=== PATIENT | female | born 1930 | race Caucasian/White ===

== ENCOUNTER 2016-09-12 10:52 | Inpatient (IN) | payer OTHER, MEDICARE ==
[~2016-09-12] VITALS: Ht 165.1 cm; Wt 71.7 kg
[2016-09-12 10:59] VITALS: BP 133/54; PULSE 79; RESP 16; TEMP 97.5; O2SAT 100
--- NOTE | 2016-09-12 11:00 | NUR ---
Patient placed in room 5, here for low H/H notified by PMD this morning.
--- NOTE | 2016-09-12 11:10 | NUR ---
Dr Ospina at bedside examining patient
--- NOTE | 2016-09-12 11:10 | NUR ---
Pt brought by self, A&Ox4,pt c/o generalized weakness and SOB, also memo legs bruising, skin pink and warm,cap refill<3, VSS, pt follows commands, pt placed on O2 3L NC.
[2016-09-12] MEDS ORDERED: NACL 0.9% 1,000 ML IV SCH (11:24)
--- NOTE | 2016-09-12 12:00 | NUR ---
Medication reconciliation completed with information provided by patient . Any prior medication reconciliation on file was reviewed and corrected.
[2016-09-12 12:02] LABS: BASOPHILS % (AUTO) 0.7 % (0.0-2.0); EOSINOPHILS # (AUTO) 0.1 K/uL (0.0-0.4); EOSINOPHILS % (AUTO) 1.1 % (0.0-4.0); LYMPHOCYTES # (AUTO) 0.8 K/uL (1.0-5.5); MEAN CORPUSCULAR HEMOGLOBIN 32 pg (27-31); MEAN CORPUSCULAR HGB CONC 34 % (32-36); MEAN CORPUSCULAR VOLUME 95 fL (79.0-98.0); MONOCYTES # (AUTO) 0.6 K/uL (0.0-1.0); MONOCYTES % (AUTO) 11.6 % (1.7-9.3); NEUTROPHILS # (AUTO) 3.6 K/uL (1.8-7.7); NEUTROPHILS % (AUTO) 71.6 % (40.0-70.0); PLATELET COUNT (AUTO) 224 K/uL (130-430); RED CELL DISTRIBUTION WIDTH 20.1 % (9.0-15.0); WHITE BLOOD COUNT (AUTO) 5.1 K/uL (4.8-10.8)
[2016-09-12 12:05] LABS: ANION GAP 10 (5-15); CALCIUM 8.5 mg/dL (8.4-11.0); CHLORIDE 104 mmol/L (98-107); CREATININE 0.93 mg/dL (0.55-1.30); GLUCOSE 101 mg/dL (70-99); POTASSIUM 3.7 mmol/L (3.5-5.1); SODIUM SERUM 138 mmol/L (136-145); UREA NITROGEN, BLOOD 25 mg/dL (8-21)
[2016-09-12 12:11] LABS: RED BLOOD CELL COUNT(AUTO) 1.71 MIL/uL (4.2-6.2)
[2016-09-12 12:14] LABS: HEMATOCRIT 16.2 % (36-48); HEMOGLOBIN 5.4 g/dL (12.0-16.0)
[2016-09-12] MEDS ORDERED: NACL 0.9% 1,000 ML IV ONE (12:15)
[2016-09-12 12:20] LABS: ALANINE AMINOTRANSFERASE 15 U/L (12-78); ALBUMIN 2.6 g/dL (3.4-4.8); ASPARTATE AMINOTRANSFERASE 17 U/L (10-37); TOTAL BILIRUBIN 0.6 mg/dL (0.0-1.0); TOTAL PROTEIN, SERUM 5.7 g/dL (6.4-8.3)
[2016-09-12 12:41] LABS: INR > 9.0 (0.8-1.2); PROTHROMBIN TIME > 90.0 SECS (9.5-12.5)
[2016-09-12] MEDS ORDERED: cefTRIAXone 1 GM IVPB PREMIX 50 ML IV ONE (12:45)
[2016-09-12 12:57] LABS: HEMOGLOBIN 5.2 g/dL (12.0-16.0)
[2016-09-12 12:58] LABS: HEMATOCRIT 15.1 % (36-48)
[2016-09-12] MEDS ORDERED: ALBUTEROL SULFATE 0.083% 2.5 MG/3 ML VIAL.NEB INH PRN (13:00)
[2016-09-12] MEDS ORDERED: IPRATROPIUM BROM 0.5 MG/2.5 ML VIAL.NEB (ATROVENT) INH PRN (13:00)
[2016-09-12 13:06] LABS: IRON (SERUM) 56 mcg/dL (37-145); TOTAL IRON BIND. CAPACITY 325 ug/dL (250-450)
[2016-09-12] MEDS: D5NS 1,000 ML IV SCH ×2 (13:15→23:15)
[2016-09-12] MEDS ORDERED: PANTOPRAZOLE SODIUM 40 MG/VIAL (PROTONIX) IVP ONE (13:30)
[2016-09-12] MEDS ORDERED: POTA20TA83 (13:32)
[2016-09-12] MEDS ORDERED: PANT40TA4 PO (13:32)
[2016-09-12] MEDS ORDERED: FURO-149 PO (13:32)
[2016-09-12] MEDS ORDERED: DONE10TA4 PO (13:32)
[2016-09-12] MEDS ORDERED: PREG100C (13:32)
[2016-09-12] MEDS ORDERED: WARF2.5T82 (13:32)
[2016-09-12] MEDS ORDERED: LEVOTHYROXINE PO (13:32)
[2016-09-12] MEDS ORDERED: ESCI20TA37 PO (13:32)
[2016-09-12] MEDS ORDERED: SIMV40TA5 (13:32)
[2016-09-12] MEDS ORDERED: ferrous sulfate (13:32)
[2016-09-12] MEDS ORDERED: LORA0.5T PO (13:32)
[2016-09-12] MEDS ORDERED: HYDR-4100 (13:32)
[2016-09-12] MEDS ORDERED: ASPI-524 PO (13:32)
[2016-09-12] MEDS ORDERED: ASCO-339 (13:32)
--- NOTE | 2016-09-12 13:37 | NUR ---
CALLED GI CONSULT TO DR KRAUSE RE; GI BLEED. SPOKE TO ELEAZAR
[2016-09-12 13:44] VITALS: BP 133/54; PULSE 79
--- NOTE | 2016-09-12 13:45 | NUR ---
Patient will be admitted to care of Dr White . Admitted to Tele unit. Will go to room 114A . Belongings list completed. Summary report printed.
--- NOTE | 2016-09-12 13:50 | NUR ---
ADMIT NOTE Received pt from ER to the floor with a diagnosis of ANEMIA, SEPSIS. Admission process initiated. patient oriented to pain management, safety and call light-teach back done.
--- NOTE | 2016-09-12 14:00 | NUR ---
assessment notes rec patient with her daughter in thr room with low hgb. pt awakelaert looks pale. hob elevated with ivf infusing well on the r ac. no infiltration noted. noted with brusing on the r thigh, legs and knee. no bleeding noted so far. pt with o2 at 2 liters via nasal cannula. resp easy and unlabored. bed in low position and side rails up and locked. call light provided and knows when to call for assistance. daughter at bedside with patient.
[2016-09-12 14:01] VITALS: BP 133/54; PULSE 79; RESP 18; TEMP 97.5; O2SAT 100
--- NOTE | 2016-09-12 14:20 | NUR ---
rounds 1 unit of ffp started to infuse on the r ac. checked/verified at bedside with sal hollidayn nurse. instructed patient to watch out for any untoward reaction. no sob noted.
--- NOTE | 2016-09-12 14:38 | NUR ---
GI CONSULT Spoke with exchange regarding request for consultation with Dr. Lai ([phone]) for reason: GI bleeding.
--- NOTE | 2016-09-12 14:59 | NUR ---
PULMONARY CONSULT Spoke with Nick regarding request for consultation with Dr. Phillips ([phone]) for reason: COPD.
[2016-09-12] MEDS: ALBUTEROL SULFATE 0.083% 2.5 MG/3 ML VIAL.NEB INH SCH ×2 (15:07→19:00)
[2016-09-12] MEDS: IPRATROPIUM BROM 0.5 MG/2.5 ML VIAL.NEB (ATROVENT) INH SCH ×2 (15:07→19:00)
--- NOTE | 2016-09-12 15:10 | NUR ---
rounds ffp completed and no untoward reaction noted.
--- NOTE | 2016-09-12 15:26 | NUR ---
rounds first unit of prbc started verified with demarcus rn at bedside.instructed patient to watch out for any blood transfusion reaction like chest pain, itching, sob, back pain, fever etc and report to the nurse and understood.
--- NOTE | 2016-09-12 16:03 | NUR ---
rounds blood transfuion in progress no untoward reaction noted, resp easy /unlabored . no sob noted.
--- NOTE | 2016-09-12 18:12 | NUR ---
paged for Dr Lai, dialed . s/w Piper.
--- NOTE | 2016-09-12 18:30 | NUR ---
CLOSING NOTES FIRST UNIT OF BLOOD COMPLETED. NO UNTOWARD REACTION NOTED. NORMAL SALINE INFUSING AFTER. NO ACUTE DISTRESS NOTED. WILL ENDORSED TO NIGHT NURSE SAMI FOR 2 MORE UNITS OF PRBC AND 2 PLATELET PHRESIS.
--- NOTE | 2016-09-12 20:15 | NUR ---
PRBC infusing second unit , no s/sx of adverse reaction / .
[2016-09-12 20:26] VITALS: BP 98/63; PULSE 79; RESP 20; TEMP 97.8; O2SAT 94
[2016-09-12] MEDS: PANTOPRAZOLE SODIUM 40 MG/VIAL (PROTONIX) IVP SCH (23:05)
--- NOTE | 2016-09-12 23:21 | NUR ---
DR COE here to see patient new orders obtained / .
--- NOTE | 2016-09-12 23:23 | NUR ---
Protonix 40 mg ivp administer as ordered / .
[2016-09-12 23:54] VITALS: BP 104/66; PULSE 66; RESP 18; TEMP 97.8; O2SAT 92
--- NOTE | 2016-09-13 00:24 | NUR ---
PRBC third unit infusing tolerating awake alert / .
[2016-09-13 03:54] VITALS: BP 138/63; PULSE 72; RESP 20; TEMP 97.2; O2SAT 98
--- NOTE | 2016-09-13 04:26 | NUR ---
FFP has been started & infusing continue to monitor / .
--- NOTE | 2016-09-13 05:52 | NUR ---
PATIENT awake alert verbally indicative FFP second unit about completed no adverse reaction noted / .
[2016-09-13 07:06] LABS: EOSINOPHILS # (AUTO) 0.1 K/uL (0.0-0.4)
[2016-09-13 07:13] LABS: BASOPHILS % (AUTO) 0.4 % (0.0-2.0); EOSINOPHILS % (AUTO) 1.3 % (0.0-4.0); HEMOGLOBIN 7.8 g/dL (12.0-16.0); LYMPHOCYTES # (AUTO) 0.7 K/uL (1.0-5.5); MEAN CORPUSCULAR HEMOGLOBIN 29 pg (27-31); MEAN CORPUSCULAR HGB CONC 33 % (32-36); MEAN CORPUSCULAR VOLUME 89 fL (79.0-98.0); MONOCYTES # (AUTO) 0.6 K/uL (0.0-1.0); MONOCYTES % (AUTO) 10.6 % (1.7-9.3); NEUTROPHILS # (AUTO) 4.6 K/uL (1.8-7.7); NEUTROPHILS % (AUTO) 76.7 % (40.0-70.0); PLATELET COUNT (AUTO) 208 K/uL (130-430); RED CELL DISTRIBUTION WIDTH 19.2 % (9.0-15.0)
[2016-09-13 08:00] VITALS: BP 121/59; PULSE 68; RESP 24; TEMP 98.4; O2SAT 98
[2016-09-13 08:00] LABS: INR 2.3 (0.8-1.2); PROTHROMBIN TIME 25.2 SECS (9.5-12.5)
--- NOTE | 2016-09-13 08:00 | NUR ---
OPENING NOTE PATIENT IS AWAKE, ALERT. NO SIGNS OF DISTRESS. IV INFUSING. ASSISTED PATIENT UP TO COMMODE. 2LPM NASAL CANNULA.
[2016-09-13] MEDS: D5NS 1,000 ML IV SCH ×2 (09:15→20:50)
[2016-09-13] MEDS: ALBUTEROL SULFATE 0.083% 2.5 MG/3 ML VIAL.NEB INH SCH ×5 (09:34→23:00)
[2016-09-13] MEDS: IPRATROPIUM BROM 0.5 MG/2.5 ML VIAL.NEB (ATROVENT) INH SCH ×5 (09:35→23:00)
--- NOTE | 2016-09-13 09:45 | NUR ---
PATIENT MEDICATED PER ORDERS. STOOL SAMPLE SENT TO LAB. PATIENT CLEANED BY ELIUD WALLACE
[2016-09-13] MEDS: PANTOPRAZOLE SODIUM 40 MG/VIAL (PROTONIX) IVP SCH ×2 (09:58→20:50)
--- NOTE | 2016-09-13 10:42 | NUR ---
DR ROA IN TO SEE PATIENT.
--- NOTE | 2016-09-13 10:50 | NUR ---
CALLED ORTHO CONSULT TO DR MARY, DR. COLE RAYON TESTER RE: KNEE PAIN. SPOKE TO MARIELA CALLED HEMATOLGY/ONCOLOGY CONSULT TO DR RICARDO, RE: ANEMIA. SPOKE TO MARIELA
--- NOTE | 2016-09-13 11:15 | NUR ---
ffp hung and infusing
--- NOTE | 2016-09-13 12:15 | NUR ---
ASSISTED PT TO COMMODE. FFP FINISHED INFUSING. NO REACTION NOTED
[2016-09-13 12:53] VITALS: BP 145/65; PULSE 51; RESP 20; TEMP 97.5; O2SAT 99
--- NOTE | 2016-09-13 14:20 | NUR ---
DAUGHTER AT BEDSIDE. PRBC'S HUNG, DOUBLE CHECKED WITH ANOTHER RN.
[2016-09-13 16:38] VITALS: BP 112/62; PULSE 92; RESP 20; TEMP 97.1; O2SAT 97
--- NOTE | 2016-09-13 17:20 | NUR ---
PRBC'S FINISHED INFUSING. NO REACTION NOTED. PER DAUGHTER PATIENT HAS PROBLEMS WITH BREATHING WHEN SHE IS FLUID OVERLOADED. REQUESTED TO NOT RECEIVE ANY MAINTENANCE IV FLUIDS BEYOND BLOOD PRODUCTS IF POSSIBLE. WILL ENDORSE TO STONECUTTER APPRENTICE HAND RN
--- NOTE | 2016-09-13 18:45 | NUR ---
DR ROA PAGED RE BLOOD TRANSFUSION ORDERS.
--- NOTE | 2016-09-13 18:45 | NUR ---
PAGED PAGED GALINDO ELLISON AT [phone] SPOKE WITH DORI.
--- NOTE | 2016-09-13 18:46 | NUR ---
DR ROA RETURNED CALL. OK TO TRANSFUSE PREVIOUSLY ORDERED PRBC'S. DC'D TELE ON PATIENT.
[2016-09-13 19:20] LABS: HEMATOCRIT 27.5 % (36-48); HEMOGLOBIN 9.3 g/dL (12.0-16.0)
[2016-09-13 20:00] VITALS: BP 121/66; PULSE 95; RESP 22; TEMP 98.2; O2SAT 97
--- NOTE | 2016-09-13 20:00 | NUR ---
PM Assessment Pt awake alert oriented x 4. Clear speech. Pt on 3L nasal cannula spo2 97% at the time. breathing symmetrically. IV on the right AC 18g, saline locked. Educated to use call light for assistance verbalized understanding. Safety precaution in place. Bed in the lowest positioned. HOB semi fry positioned. call light within reach. Call light within reach. will continue to monitor
--- NOTE | 2016-09-13 20:39 | NUR ---
PAGED PAGED GALINDO ELLISON AT [phone] SPOKE WITH GUS.
--- NOTE | 2016-09-13 21:00 | NUR ---
educated pt regarding IV fluid per MD. verbalized understanding. Started IV D5 NS at 100ml/hr.
[2016-09-13] MEDS ORDERED: ACETAMINOPHEN 500 MG TABLET PO PRN (21:30)
--- NOTE | 2016-09-13 22:45 | NUR ---
BT INITIATION: Consent signed per pt agreeing to administration of blood. Blood has been type and crossmatched. Blood sent from blood bank. Information on unit of blood checked against patient wristband at bedside by two nurses. All information matches. Patient or responsible green party informed of potential complications associated with blood transfusion. Informed of possible transfusion reaction symptoms. Aware of need to notify nurse at once of itching, shortness of breath, flushing, feeling of impending doom, or other symptoms not previously present. Vital signs taken within 5 minutes prior to initiation of transfusion. RN remained with patient for first 15 minutes of transfusion at which time vital signs will be re-assessed.
[2016-09-13] MEDS: HYDROcodone/ACETAMIN 5-325 MG TAB (NORCO/ VICODIN) PO PRN (22:52)
[2016-09-13 23:20] VITALS: BP 105/52; PULSE 81; RESP 18; TEMP 98; O2SAT 98
--- NOTE | 2016-09-13 23:50 | NUR ---
BT INITIATION: Consent signed per pt agreeing to administration of blood. Blood has been type and crossmatched. Blood sent from blood bank. Information on unit of blood checked against patient wristband at bedside by two nurses. All information matches. Patient or responsible alliance party informed of potential complications associated with blood transfusion. Informed of possible transfusion reaction symptoms. Aware of need to notify nurse at once of itching, shortness of breath, flushing, feeling of impending doom, or other symptoms not previously present. Vital signs taken within 5 minutes prior to initiation of transfusion. RN will remain with patient for first 15 minutes of transfusion at which time vital signs re-assessed.
--- NOTE | 2016-09-14 00:39 | NUR ---
PAGED PAGED GALINDO ELLISON AT [phone] SPOKE WITH SESAR.
[2016-09-14] MEDS ORDERED: PREGABALIN 25 MG CAPSULE (LYRICA) PO ONE (00:45)
[2016-09-14 02:51] LABS: HEMATOCRIT 25.6 % (36-48); HEMOGLOBIN 8.6 g/dL (12.0-16.0)
[2016-09-14] MEDS: IPRATROPIUM BROM 0.5 MG/2.5 ML VIAL.NEB (ATROVENT) INH SCH ×6 (03:00→23:00)
[2016-09-14] MEDS: ALBUTEROL SULFATE 0.083% 2.5 MG/3 ML VIAL.NEB INH SCH ×6 (03:00→23:00)
--- NOTE | 2016-09-14 04:15 | NUR ---
Assisted pt to the bedside commode. Pt bilateral lower extremities weakness noted. Comfort needs met. educate to use call light for assistance. call light in reach.
--- NOTE | 2016-09-14 05:00 | NUR ---
IV PLACEMENT: # 22 gauge angiocath placed to right wrist. Use of aseptic technique. Opsite placed over site. Blood return noted. Flushed with 5ml of normal saline. No evidence of infiltration noted. Resumed Iv fluids of D5 NS 100ml/hr
[2016-09-14 05:11] VITALS: BP 109/60; PULSE 65; RESP 20; TEMP 98.3; O2SAT 98
[2016-09-14] MEDS: HYDROcodone/ACETAMIN 5-325 MG TAB (NORCO/ VICODIN) PO PRN (06:38)
--- NOTE | 2016-09-14 06:45 | NUR ---
Closing note Pt eye closed. Awoke for the light stimuli. comfort shift met throughout the shift. hourly rounds done. Safety precaution in place. Bed in the lowest positioned, locked. educated to use call light for assistance. Verbalized understanding. Medicated for back pain level of 6/10. call light in reach. Will endorse to the day shift nurse to continue care and reassess pain level at 0738.
[2016-09-14 06:57] LABS: HEMATOCRIT 25.9 % (36-48); HEMOGLOBIN 8.8 g/dL (12.0-16.0)
--- NOTE | 2016-09-14 07:55 | NUR ---
INITIAL NOTES RECEIVED PATIENT ON BED ASLEEP.BREATHING EVEN AND UNLABORED.NO ACUTE DISTRESS.IVF INFUSING WELL;NO SIGNS AND SYMPTOMS OF INFILTRATION.SAFETY AND FALL PRECAUTIONS IN PLACE.CALL LIGHT WITHIN REACH
[2016-09-14 08:02] LABS: BASOPHILS % (AUTO) 0.3 % (0.0-2.0); EOSINOPHILS % (AUTO) 0.3 % (0.0-4.0); HEMATOCRIT 26.1 % (36-48); HEMOGLOBIN 8.8 g/dL (12.0-16.0); LYMPHOCYTES # (AUTO) 0.5 K/uL (1.0-5.5); LYMPHOCYTES % (AUTO) 5.7 % (20.5-51.5); MEAN CORPUSCULAR HEMOGLOBIN 31 pg (27-31); MEAN CORPUSCULAR HGB CONC 34 % (32-36); MEAN CORPUSCULAR VOLUME 90 fL (79.0-98.0); MONOCYTES # (AUTO) 0.8 K/uL (0.0-1.0); MONOCYTES % (AUTO) 8.9 % (1.7-9.3); NEUTROPHILS # (AUTO) 7.2 K/uL (1.8-7.7); NEUTROPHILS % (AUTO) 84.8 % (40.0-70.0); PLATELET COUNT (AUTO) 184 K/uL (130-430); RED BLOOD CELL COUNT(AUTO) 2.89 MIL/uL (4.2-6.2); WHITE BLOOD COUNT (AUTO) 8.5 K/uL (4.8-10.8)
[2016-09-14 08:16] VITALS: BP 104/67; PULSE 65; RESP 16; TEMP 97.9; O2SAT 95
[2016-09-14 08:27] LABS: INR 1.7 (0.8-1.2); PROTHROMBIN TIME 18.6 SECS (9.5-12.5)
--- NOTE | 2016-09-14 08:59 | NUR ---
Nutrition Update Ismael Scale 17 noted. Pt admitted for anemia, coagulopathy. Diet: NPO BMI: 26.3 kg/m2 RD to follow per nutrition care standards.
[2016-09-14] MEDS: PANTOPRAZOLE SODIUM 40 MG/VIAL (PROTONIX) IVP SCH ×2 (09:04→22:17)
[2016-09-14] MEDS: D5NS 1,000 ML IV SCH (10:03)
--- NOTE | 2016-09-14 11:00 | NUR ---
NOTES CHECKED PATIENT;NEEDS ATTENDED TO
[2016-09-14 12:14] VITALS: BP 126/72; PULSE 70; RESP 20; TEMP 96.4; O2SAT 94
[2016-09-14 13:09] VITALS: BP 127/70; PULSE 56; RESP 22; TEMP 96.6; O2SAT 95
--- NOTE | 2016-09-14 13:45 | NUR ---
NOTES ASSISTED WOUND CARE NURSE;TOLERATED TREATMENT WELL
--- NOTE | 2016-09-14 14:00 | NUR ---
WOUND EVALUATION: Wound Consult received from Dr. Hayes. Thank you, Dr. Hayes, for the consult. Patient received in a Med[place] Bed with an IsoFlex ANDIE mattress with low air-loss therapy initiated, awake, alert, and oriented. Patient is able to turn in bed with some assist. Ismael Score is a 17. Past Medical History: COPD, Chronic Respiratory Failure, on home O2, history of CABG, and Crohn's disease. Recent Labs: WBC 8.5, RBC 2.89, Hgb 8.8, Hct 26.1, BUN 25, Creat 0.93, Gluc 101, PT 18.6, INR 1.7. Intrinsic factors that delay wound healing: COPD, Chronic Respiratory Failure. Extrinsic factors that delay wound healing: Decreased mobility. Microbiology: Stool OB and Blood Culture in progress. Bilateral Lower Extremities have erythema, and Hemosiderin staining. Wound Assessment: 1) Left Lower Extremity: 2) Right Lower Extremity, and Right Knee: Multiple chronic wounds with dry scabs, present on admission. Wound bed is 100% black eschar. No odor, no drainage. roya-wound intact. 3) Left Foot, Fifth Toe, Lateral Aspect: Chronic wound with dry scab, present on admission. Wound bed is 100% black eschar. No odor, no drainage. roya-wound intact. 4) Right Thigh and Calf: Large areas of bruising with purple discoloration, present on admission. Recommend: No dressings needed. Continue to monitor sites for worsening condition. 5) Left Buttock: Two chronic wounds, from IAD. A) Superior Wound: Wound bed is 100% pink tissue. No odor, no drainage. Measures 0.4 cm x 0.3 cm. B) Inferior Wound: Wound bed is 100% pink tissue. No odor, no drainage. Measures 1.1 cm x 0.5 cm. 6) Buttocks: Dark dull red colored tissue from IAD. No odor, no drainage. Non-blanchable in some areas. Recommend: Cleanse involved areas with mild soap and water. Pat dry. Apply moisture barrier cream to involved areas. Cover with Sacral foam dressing. Perform wound care daily, and as needed or dressing soiling or dislodgment. Also recommend: Reposition patient side to side only every 2 hours with pillow support, and off-load pressure areas with pillows for pressure re-distribution. Offload, elevate and float bilateral heels with pillows. Perform skin care and monitor skin integrity Q shift. Use moisture barrier cream on buttocks and other moisture susceptible areas QID and as needed for soiling. Maintain patient on a low air-loss mattress.
[2016-09-14 16:37] VITALS: BP 122/70; PULSE 99; RESP 20; TEMP 97; O2SAT 93
[2016-09-14] MEDS ORDERED: BISACODYL 5 MG TABLET.DR (DULCOLAX) PO ONE (17:00)
--- NOTE | 2016-09-14 17:30 | NUR ---
NOTES PATIENT COMPLAINED OF SHORTNESS OF BREATH;CHECKED AND ASSESSED PATIENT;O2 SAT=97% WITH O2 AT 3L/M VIA NASAL CANNULA.BILATERAL LUNGS WITH FAINT RHONCHI.HEAD OF BED ELEVATED.INCREASED O2 TO 4L/M REQUESTED BY PATIENT.WILL CONTINUE TO MONITOR
[2016-09-14] MEDS ORDERED: GOLYTELY / COLYTE SOLUTION 4 LITERS PO ONE (18:00)
--- NOTE | 2016-09-14 18:35 | NUR ---
CLOSING NOTES PATIENT ON BED AWAKE.SHORT OF BREATH WITH 02 AT 3L/M VIA NASAL CANNULA;02 SAT=96%.ENCOURAGED BREATHING TREATMENT BUT REFUSED.REQUESTED TO SIT UP AT THE EDGE OF HER BED;ASSISTED.IVF INFUSING WELL;NO SIGNS AND SYMPTOMS OF INFILTRATION.SAFETY AND FALL PRECAUTIONS IN PLACE.CALL LIGHT WITHIN REACH.WILL ENDORSE TO NEXT SHIFT ACCORDINGLY
[2016-09-14 19:07] LABS: HEMATOCRIT 25.5 % (36-48); HEMOGLOBIN 8.6 g/dL (12.0-16.0)
[2016-09-14] MEDS ORDERED: SIMV40TA5 PO (19:11)
[2016-09-14] MEDS ORDERED: MULT PO (19:11)
[2016-09-14] MEDS ORDERED: PREG300C PO (19:11)
[2016-09-14] MEDS ORDERED: ASCO500T20 PO (19:11)
[2016-09-14] MEDS ORDERED: VITD2000 PO (19:11)
[2016-09-14] MEDS ORDERED: CYAN100067 PO (19:11)
[2016-09-14] MEDS ORDERED: POTA20TA83 PO (19:11)
[2016-09-14] MEDS ORDERED: FERR-57 PO (19:11)
[2016-09-14] MEDS ORDERED: WARF2.5T2 PO ×2 (19:11)
[2016-09-14] MEDS ORDERED: HYDR-4100 PO (19:11)
[2016-09-14] MEDS ORDERED: LORazepam 1 MG TABLET PO PRN (19:45)
[2016-09-14 20:00] VITALS: BP 121/84; PULSE 72; RESP 18; TEMP 97.8; O2SAT 95
--- NOTE | 2016-09-14 20:00 | NUR ---
Opening Note Patient is currently sitting in bed. Call light is within reach. Instructed to use it whenever in need of assistance. IV is on the right hand 22g running D5NS@100ml/hr. Patient is currently drinking a bowel prep for a colonoscopy tomorrow. Bed side commode is within reach.
--- NOTE | 2016-09-14 22:00 | NUR ---
Rounds Instructed patient not to get out of bed for safety reasons. Continued to encourage her to drink the bowel. Cleaned her up since she is currently having loose stools. call light is within reach.
[2016-09-14] MEDS: PREGABALIN 75 MG CAPSULE (LYRICA) PO SCH (22:16)
[2016-09-14] MEDS: SIMVASTATIN 40 MG TABLET PO SCH (22:17)
[2016-09-14] MEDS: MULTIVITAMINS TAB 1 TABLET PO SCH (22:17)
[2016-09-15] VITALS (7 sets, daily range): BP systolic 90–130; BP diastolic 51–68; PULSE 52–64; RESP 14–19; TEMP 96.8–97.9; O2SAT 92–98
--- NOTE | 2016-09-15 | NUR ---
Rounds patient is currently resting in bed. Call light is within reach.
--- NOTE | 2016-09-15 02:00 | NUR ---
Rounds Patient is currently resting in bed. No signs of distress noted. Call light is within reach.
[2016-09-15] MEDS: IPRATROPIUM BROM 0.5 MG/2.5 ML VIAL.NEB (ATROVENT) INH SCH ×6 (03:00→23:30)
[2016-09-15] MEDS: ALBUTEROL SULFATE 0.083% 2.5 MG/3 ML VIAL.NEB INH SCH ×6 (03:00→23:30)
--- NOTE | 2016-09-15 04:00 | NUR ---
Rounds Patient is sleeping in bed. call light is within reach.
[2016-09-15] MEDS: D5NS 1,000 ML IV SCH (05:49)
[2016-09-15 06:06] LABS: FOLATE (FOLIC ACID) 17.3 ng/mL (>3.0)
[2016-09-15] MEDS: LEVOTHYROXINE SODIUM 0.15 MG TABLET PO SCH (06:12)
--- NOTE | 2016-09-15 06:30 | NUR ---
Closing note Tap water enema administered per MD order. Patient tolerated well. EGD/Colonoscopy is pending for today. IV is on the right hand 22g currently running D5NS@100. Will give report to the oncoming nurse.
[2016-09-15 07:03] LABS: HEMATOCRIT 24.3 % (36-48); HEMOGLOBIN 8.1 g/dL (12.0-16.0); INR 1.6 (0.8-1.2); PROTHROMBIN TIME 18.2 SECS (9.5-12.5)
--- NOTE | 2016-09-15 07:55 | NUR ---
INITIAL NOTE RECEIVED PATIENT RESTING IN BED, NO SIGNS OF DISTRESS, NO COMPLAINTS OF PAIN, ASSESSMENT COMPLETE, PATIENT IS CURRENTLY NPO, REEDUCATED THE REASON WHY SHE IS NPO,PATIENT VERBALIZED UNDERSTANDING, INSTRUCTED PATIENT TO USE CALL BARTHOLOMEW IF ASSISTANCE IS NEEDED, PATIENT VERBALIZED UNDERSTANDING, CALL BARTHOLOMEW LEFT IN PATIENT'S HAND, BED IN LOWEST POSITION, BED ALARM ON, FALL PRECAUTIONS IN PLACE, WILL CONTINUE TO MONITOR PATIENT.
[2016-09-15] MEDS: PANTOPRAZOLE SODIUM 40 MG/VIAL (PROTONIX) IVP SCH ×2 (08:54→20:58)
--- NOTE | 2016-09-15 08:55 | NUR ---
MEDICATIONS PATIENT WAS GIVEN IV MEDICATIONS, REEDUCATED PATIENT ON USE OF MEDICATION, PATIENT VERBALIZED UNDERSTANDING, NO OTHER QUESTIONS AT THIS TIME, CALL BARTHOLOMEW IS LEFT IN PATIENT'S HAND, BED IN LOWEST POSITION, BED ALARM ON, FALL PRECAUTIONS IN PLACE, WILL CONTINUE TO MONITOR PATIENT.
[2016-09-15] MEDS ORDERED: NON-FORMULARY MEDICATION (Escitalopram Oxalate 20 MG) PO SCH (09:00)
--- NOTE | 2016-09-15 09:50 | NUR ---
RN ROUNDS PATIENT IS LYING IN BED WITH EYES CLOSE, NO SIGNS OF DISTRESS AT THIS TIME, CALL BARTHOLOMEW LEFT IN PATIENT'S HAND, BED IN LOWEST POSITION, BED ALARM ON, FALL PRECAUTIONS IN PLACE, WILL CONTINUE TO MONITOR PATIENT.
--- NOTE | 2016-09-15 10:15 | NUR ---
GROVER PLANNING Yest received msg that heena Jernigan wanted a call back, Per pt ok to call dtr. This am called & spoke fito Jernigan stated that would like Hospital bed & power lift recliner. States that pt does not have hospital bed, home o2, or many DME's to call sister Carissa that lives w pt. Called & spoke fiot Ferrer, states, that she moved in w pt few months ago. Pt does have home O2 uses PRN only, has hospital bed that pt does not use sleeps in recliner, has tub bench, FWW, WC, bar in tub, 3-in-1 cammode that uses over toilet. States that [facility] Nurse come once a week. Would like a power lift recliner since pt does not like to sleep in hospital bed, if not covered they would look into buying one. States that brothhector Giraldo is the one that makes decisions along w pt. Informed Carissa that power lift recliner would most likely not be covered by Medicare that would call DME company. Informed would leave a pamphlet for [employer] @ bedside. Informed grover Gong cyber intel planner. Addendum: 09/15/16 at 1102 by Farideh Escalona DP Received call from Charleen in admitting at [facility] in [place] [phone] who stated patient PCP Pascual requested patient to be transferred upon discharge. Charleen stated referral can be faxed to [phone]. RAND Castaneda made aware.
--- NOTE | 2016-09-15 11:30 | NUR ---
RN ROUNDS PATIENT IS RESTING IN BED, NO COMPLAINTS OF PAIN AT THIS TIME, INSTRUCTED PATIENT TO USE CALL BARTHOLOMEW IF ASSISTANCE IS NEEDED, PATIENT VERBALIZED UNDERSTANDING, FALL PRECAUTIONS IN PLACE, WILL CONTINUE TO MONITOR
--- NOTE | 2016-09-15 11:40 | NUR ---
PT NOTES CHART REVIEWED AND CLEARED FOR PT BY RN. PATIENT IN SEMIFOWLER POSITION SLEEPING AND EASILY AROUSED. PATIENT DENIES PAIN OR SOB AT THIS TIME, BUT DECLINES PARTICIPATION IN THERAPY STATING, "I'M GOING TO HAVE MY PROCEDURE TODAY". DESPITE EDUCATION AND MOTIVATION, PATIENT CONTINUED TO DECLINE FOR TODAY, "LETS DO IT TOMORROW". RN MADE AWARE, TRAY AND CALL LIGHT IN REACH. WILL FOLLOW UP TOMORROW IF POSSIBLE. PVEx1 Addendum: 09/15/16 at 1512 by Kristan Gomez PT PHYSICAL THERAPY CO-SIGN The Physical Therapy Progress Notes documented by Blunger Loader have been reviewed. WILL FOLLOW UP WITH Pt NEXT SCHEDULED TX Reviewed/Co-Signed by: Kristan Gomez PT Documentation Done by: NORMA VALDEZ PTA
[2016-09-15] MEDS ORDERED: fentaNYL CITRATE/PF 100 MCG/2 ML AMP ONE (12:40)
[2016-09-15] MEDS ORDERED: MIDAZOLAM HCL 5 MG/5 ML VIAL ONE (12:41)
--- NOTE | 2016-09-15 12:50 | NUR ---
OFF UNIT PATIENT IS OFF UNIT AT THIS TIME, WENT TO GI LAB FOR PROCEDURE
--- NOTE | 2016-09-15 13:02 | NUR ---
PATIENT BACK ON UNIT PATIENT IS BACK ON UNIT FROM GI LAB, IT WAS REPORTED THAT PATIENT O2 WAS TOO LOW TO GO SEDATE, AND PATIENT REFUSED PROCEDURE, DR. ARMANDO IS AWARE AND STATED HE WILL CALL DR. ROA TO NOTIFY HIM OF PATIENT'S DECISION, WILL FOLLOW UP, PATIENT IS NOW LYING COMFORTABLY IN BED, NO COMPLAINTS OF DISCOMFORT OR PAIN, CALL BARTHOLOMEW LEFT IN PATIENT'S HAND, BED IN LOWEST POSITION, BED ALARM ON, FALL PRECAUTIONS IN PLACE, WILL CONTINUE TO MONITOR PATIENT.
--- NOTE | 2016-09-15 14:50 | NUR ---
RN ROUNDS PATIENT IS RESTING IN BED, PATIENT IS STABLE, NO SIGNS OF DISTRESS, NO COMPLAINTS OF PAIN, FFP HAS BEEN STARTED, VITAL SIGNS ARE STABLE, INSTRUCTED PATIENT TO POTENTIAL SIDE EFFECTS AND TO CALL IF SHE HAS ANY SIGNS OF DISTRESS OR FEEL ANY DIFFERENT, PATIENT VERBALIZED UNDERSTANDING, CALL BARTHOLOMEW IS WITHIN REACH OF PATIENT, BED IN LOWEST POSITION, BED ALARM ON, TWO SIDE RAILS UP, FALL PRECAUTIONS IN PLACE.
[2016-09-15] MEDS ORDERED: MAGNESIUM CITRATE 300 ML ORAL SOLUTION PO ONE (16:15)
--- NOTE | 2016-09-15 16:55 | NUR ---
RN ROUNDS PATIENT IS RESTING IN BED, NO SIGNS OF DISTRESS, NO COMPLAINTS OF PAIN, FFP IS FINISHED INFUSING, NO SIGNS OF REACTIONS, PATIENT'S VITALS ARE STABLE, PRE-VITALS B/P 141/65 P 81 R16 02 100% TEMP 97.0 VITALS AFTER INFUSION, B/P 137/77 P 81 R 17 TEMP 97.6 O2 95%, INSTRUCTED PATIENT TO USE CALL BARTHOLOMEW IF ASSISTANCE IS NEEDED, PATIENT VERBALIZED UNDERSTANDING, BED IN LOWEST POSITION, CALL BARTHOLOMEW IN PATIENT'S HAND, BED ALARM ON, FALL PRECAUTIONS IN PLACE, WILL CONTINUE TO MONITOR PATIENT.
[2016-09-15] MEDS: FUROSEMIDE 40 MG TABLET PO SCH (17:07)
[2016-09-15] MEDS: CITALOPRAM HYDROBROMIDE 20 MG TABLET PO SCH (17:07)
--- NOTE | 2016-09-15 18:49 | NUR ---
CLOSING NOTE PATIENT IS CURRENTLY RESTING IN BED, NO COMPLAINTS OF PAIN OR DISCOMFORT, ALL NEEDS MET, WILL ENDORSE TO STATIONS SUPERINTENDENT NURSE THAT PATIENT IS TO BE NPO BARIUM ENEMA TOMORROW, PATIENT'S BED IN LOWEST POSITION, TWO SIDE RAILS UP, CALL BARTHOLOMEW LEFT IN PATIENT'S HAND, FALL PRECAUTIONS IN PLACE
[2016-09-15] MEDS: HYDROcodone/ACETAMIN 10-325 MG TAB PO SCH (20:57)
[2016-09-15] MEDS: MULTIVITAMINS TAB 1 TABLET PO SCH (20:57)
[2016-09-15] MEDS: PREGABALIN 75 MG CAPSULE (LYRICA) PO SCH (20:58)
[2016-09-15] MEDS: SIMVASTATIN 40 MG TABLET PO SCH (20:58)
[2016-09-16] VITALS (7 sets, daily range): BP systolic 89–125; BP diastolic 43–75; PULSE 50–82; RESP 16–20; TEMP 96.8–98.1; O2SAT 96–100; Ht 165.1 cm; Wt 71.7 kg
--- NOTE | 2016-09-16 00:18 | NUR ---
RN Note Assumed nursing care of pt from Nurse Bonilla.
--- NOTE | 2016-09-16 01:00 | NUR ---
Rounds Pt is resting comfortably in bed. IVF is infusing well. Call light is with pt.
[2016-09-16] MEDS: IPRATROPIUM BROM 0.5 MG/2.5 ML VIAL.NEB (ATROVENT) INH SCH ×5 (03:30→20:47)
[2016-09-16] MEDS: ALBUTEROL SULFATE 0.083% 2.5 MG/3 ML VIAL.NEB INH SCH ×5 (03:30→20:47)
[2016-09-16] MEDS: LEVOTHYROXINE SODIUM 0.15 MG TABLET PO SCH (06:16)
--- NOTE | 2016-09-16 06:30 | NUR ---
Closing Note Pt is resting comfortably in bed. All pt's needs were attended to. Will endorse to day shift nurse.
--- NOTE | 2016-09-16 07:50 | NUR ---
INITIAL NOTE PATIENT IS RESTING IN BED, NO SIGNS OF DISTRESS, NO COMPLAINTS OF PAIN, ASSESSMENT COMPLETE, PATIENT HAS IV IN RIGHT HAND 22 GAUGE WITH FLUID RUNNING, NO SIGNS OF INFILTRATION, INSTRUCTED PATIENT USE CALL BARTHOLOMEW IF ASSISTANCE IS NEEDED, PATIENT VERBALIZED UNDERSTANDING, CALL BARTHOLOMEW LEFT IN PATIENT'S HAND, BED IN LOWEST POSITION, BED ALARM ON, FALL PRECAUTIONS IN PLACE. WILL CONTINUE TO MONITOR
[2016-09-16 08:59] LABS: HEMATOCRIT 24.4 % (36-48)
--- NOTE | 2016-09-16 09:20 | NUR ---
RN ROUNDS PATING IS IN LYING IN BED WITH EYES CLOSE, BREATHING IS EVEN AND UNLABORED, NO SIGNS OF DISTRESS, CALL BARTHOLOMEW IS NEXT TO PATIENT'S HAND, WILL CONTINUE TO MONITOR, FALL PRECAUTIONS IN PLACE,
--- NOTE | 2016-09-16 10:25 | NUR ---
OFF UNIT PATIENT IS OFF UNIT FOR PROCEDURE
--- NOTE | 2016-09-16 11:25 | NUR ---
BACK ON UNIT PATIENT IS BACK ON UNIT FROM PROCEDURE, PT IS CURRENTLY AT THE BEDSIDE, WILL CONTINUE TO MONITOR PATIENT
--- NOTE | 2016-09-16 13:20 | NUR ---
RN ROUNDS PATIENT IS CURRENTLY RESTING IN BED, EYES CLOSED, NO SIGNS OF DISTRESS, BREATHING IS EVEN AND UNLABORED, WILL CONTINUE TO MONITOR PATIENT, FALL PRECAUTIONS IN PLACE.
--- NOTE | 2016-09-16 14:20 | NUR ---
MEDICATIONS PATIENT WAS GIVEN MORNING MEDICATIONS, GIVEN AT THIS TIME BECAUSE PATIENT WAS NPO PER PROCEDURE, DR. CROWE GAVE OKAY TO CHANGE PATIENT BACK TO CLEAR LIQUIDS DIET UNTIL TONIGHT, EDUCATED PATIENT ON MEDICATIONS AND POTENTIAL SIDE EFFECTS OF MEDICATIONS, PATIENT VERBALIZED UNDERSTANDING, CALL BARTHOLOMEW IN PATIENT'S HAND, BED ALARM ON, TWO SIDE RAILS UP, FALL PRECAUTIONS IN PLACE, WILL CONTINUE TO MONITOR PATIENT.
[2016-09-16] MEDS: PANTOPRAZOLE SODIUM 40 MG/VIAL (PROTONIX) IVP SCH ×2 (14:21→21:28)
[2016-09-16] MEDS: CITALOPRAM HYDROBROMIDE 20 MG TABLET PO SCH (14:22)
[2016-09-16] MEDS: HYDROcodone/ACETAMIN 10-325 MG TAB PO SCH (14:30)
[2016-09-16] MEDS: FUROSEMIDE 40 MG TABLET PO SCH (14:30)
--- NOTE | 2016-09-16 14:36 | NUR ---
DISCHARGE PLANNING Two attempts made to speak with patient, unable to wake patient up. Called patient daughter Carissa Terrazas [phone] regarding referral request from [facility]. Carissa will discuss with patient son Enzo and return DCP call.
--- NOTE | 2016-09-16 15:31 | NUR ---
PHYSICAL THERAPY CO-SIGN The Physical Therapy Progress Notes documented by Networking Technology Instructor have been reviewed. I CONCUR W/YIELD ANALYST NOTE; CONT PER TX PLAN Reviewed/Co-Signed by: Kristan Gomez PT Documentation Done by: KONSTANTIN FROST YIELD ANALYST Addendum: 09/16/16 at 1531 by Kristan Gomez PT Amended: Links added.
--- NOTE | 2016-09-16 16:35 | NUR ---
RN ROUNDS PATIENT IS RESTING IN BED, NO SIGNS OF DISTRESS, NO OTHER NEEDS AT THIS TIME WILL CONTINUE TO MONITOR, FALL PRECAUTIONS IN PLACE.
[2016-09-16] MEDS ORDERED: BISACODYL 5 MG TABLET.DR (DULCOLAX) PO ONE (17:00)
--- NOTE | 2016-09-16 17:10 | NUR ---
WOUND RE-EVALUATION: Patient received in a Reading Bed with an IsoFlex ANDIE mattress with low air-loss therapy initiated, awake, alert, and oriented. Patient is able to turn in bed with some assist. Ismael Score is a 14. Intrinsic factors that delay wound healing: COPD, Chronic Respiratory Failure. Extrinsic factors that delay wound healing: Decreased mobility. Microbiology: Stool OB positive. Blood Culture in progress. Bilateral Lower Extremities have erythema, and Hemosiderin staining. Wound Assessment: 1) Left Lower Extremity: 2) Right Lower Extremity, and Right Knee: Multiple chronic wounds with dry scabs, present on admission. Wound bed is 100% black eschar. No odor, no drainage. roya-wound intact. 3) Left Foot, Fifth Toe, Lateral Aspect: Chronic wound with dry scab, present on admission. Wound bed is 100% black eschar. No odor, no drainage. roya-wound intact. 4) Right Thigh and Calf: Large areas of bruising with purple discoloration, present on admission. Recommend continue: No dressings needed. Continue to monitor sites for worsening condition. 5) Left Buttock: Two chronic wounds, from IAD. A) Superior Wound: Wound bed is 100% pink tissue. No odor, no drainage. B) Inferior Wound: Wound bed is 100% pink tissue. No odor, no drainage. 6) Buttocks: Dark dull red colored tissue from IAD. No odor, no drainage. Non-blanchable in some areas. Recommend continue: Cleanse involved areas with mild soap and water. Pat dry. Apply moisture barrier cream to involved areas. Cover with Sacral foam dressing. Perform wound care daily, and as needed or dressing soiling or dislodgment. Also recommend continue: Reposition patient side to side only every 2 hours with pillow support, and off-load pressure areas with pillows for pressure re-distribution. Offload, elevate and float bilateral heels with pillows. Perform skin care and monitor skin integrity Q shift. Use moisture barrier cream on buttocks and other moisture susceptible areas QID and as needed for soiling. Maintain patient on a low air-loss mattress.
[2016-09-16] MEDS ORDERED: GOLYTELY / COLYTE SOLUTION 4 LITERS PO ONE (18:00)
--- NOTE | 2016-09-16 18:30 | NUR ---
CLOSING NOTE PATIENT IS CURRENTLY RESTING IN BED, FAMILY MEMBERS AT BEDSIDE, PATIENT DOES NOT COMPLAIN OF ANY PAIN OR DISCOMFORT, REINSTRUCTED AND EDUCATED PATIENT AND FAMILY MEMBERS ON IMPORTANCE OF FINISHING BOWEL PREP FOR PROCEDURE IN THE MORNING, PATIENT AND FAMILY VERBALIZED UNDERSTANDING WILL ENDORSE TO EDUCATION AND TRAINING MANAGER TO FOLLOW UP WITH MAKING SURE PATIENT FINISHED BOWL PREP, WILL ENDORSE TO EDUCATION AND TRAINING MANAGER NURSE ABOUT THE TWO PROCEDURES PENDING FOR PATIENT TOMORROW WELL, ALL NEEDS FOR PATIENT MET, BED IN LOWEST POSITION, BED ALARM ON, TWO SIDE RAILS UP, FALL PRECAUTIONS IN PLACE.
--- NOTE | 2016-09-16 20:00 | NUR ---
OPENING ASSESSMENT PT.ALERT/ORIENTED X4. SPEECH IS CLEAR AND APPROPRIATE. DENIES PAIN. HAS IV D5/.9NS INFUSING @ 60ML/HR VIA.RT. WRIST 22G SITE IS CLEAR. TOLERATING GOLYTELY. HAS LOOSE STOOLS. FALL PRECAUTIONS. BED ALARM ON. SIDE RAILS UP X3. BED IN LOW POSITION. CALL LIGHT WITHIN EASY ACCESS. EDUCATED @ THIS TIME TO CALL NURSE FOR ALL NEEDS AND NOT TO GET OUT OF BED WITHOUT ASSISTANCE.
--- NOTE | 2016-09-16 21:00 | NUR ---
ROUNDS HELD ROUTINE DORICO, PT. RESTING,SLEEPY. BUT NO DISTRESS NOTED.
[2016-09-16] MEDS: MULTIVITAMINS TAB 1 TABLET PO SCH (21:28)
[2016-09-16] MEDS: SIMVASTATIN 40 MG TABLET PO SCH (21:28)
[2016-09-16] MEDS: PREGABALIN 75 MG CAPSULE (LYRICA) PO SCH (21:28)
[2016-09-16] MEDS: D5NS 1,000 ML IV SCH (21:29)
--- NOTE | 2016-09-17 00:10 | NUR ---
NOTES ROUTINE NORCO GIVEN @ THIS TIME. PT. ALERT. PAIN 02/04 TO BACK.
--- NOTE | 2016-09-17 00:10 | NUR ---
NOTE PATIENT NPO. EDUCATED PATIENT THAT SHE IS NPO FOR COLONOSCOPY. LEARNING IS SATISFACTORY @ THIS TIME.
[2016-09-17] MEDS: HYDROcodone/ACETAMIN 10-325 MG TAB PO SCH ×3 (00:16→21:08)
--- NOTE | 2016-09-17 01:00 | NUR ---
DR. CAROLIN COE ASSESSING PATIENT. AWARE OF CURRENT LABS.
[2016-09-17 01:05] VITALS: BP 119/72; PULSE 77; RESP 20; TEMP 97.8; O2SAT 93
--- NOTE | 2016-09-17 03:15 | NUR ---
PATIENT RESTING: Patient resting quietly. No acute distress noted. Vital signs within normal range.
[2016-09-17 04:00] VITALS: BP 112/66; PULSE 77; RESP 20; TEMP 96.6; O2SAT 94
--- NOTE | 2016-09-17 05:00 | NUR ---
NOTES CLEANING ENEMA, X4 BAGS. DOTY COLORED LIQUID STOOL NOTED. PATIENT STATED SHE HAD ENOUGH.
[2016-09-17 06:24] LABS: INR 1.5 (0.8-1.2); PROTHROMBIN TIME 16.2 SECS (9.5-12.5)
--- NOTE | 2016-09-17 06:30 | NUR ---
CLOSING NOTES PT. RESTING QUIETLY WITHOUT DISTRESS. NPO. AWAITING COLONOSCOPY. IV D5/.9NS INFUSING @ 60 ML/HR VIA.RT. [id number] INTACT AND SITE IS CLEAR. CALL LIGHT WITHIN EASY ACCESS. INFORMED PT. TO CALL NURSE FOR ALL NEEDS AND NOT TO GET OUT OF BED.
[2016-09-17] MEDS: LEVOTHYROXINE SODIUM 0.15 MG TABLET PO SCH (07:00)
[2016-09-17] MEDS: IPRATROPIUM BROM 0.5 MG/2.5 ML VIAL.NEB (ATROVENT) INH SCH ×3 (08:07→20:58)
[2016-09-17] MEDS: ALBUTEROL SULFATE 0.083% 2.5 MG/3 ML VIAL.NEB INH SCH ×3 (08:07→20:57)
[2016-09-17] MEDS ORDERED: BARIUM SULFATE 135 ML SUSP.RECON (E-Z-HD) PO ONE (08:46)
--- NOTE | 2016-09-17 08:50 | NUR ---
OPENING NOTE RECEIVED REPORT FROM NIGHT NURSE, PATIENT IS RESTING IN BED COMFORTABLY WITH NO NOTED DISTRESS, DISCOMFORT OR SOB. PATIENT IS ALERT AND ORIENTED AND ABLE TO COMMUNICATE NEEDS TO STAFF. PATIENT IS AMBULATORY WITH ASSISTANCE. PATIENT IS EDUCATED NOT TO GET UP WITHOUT ASSISTANCE. BED IS IN LOWEST POSITION AND CALL LIGHT IS WITHIN REACH. PATIENT IS ON O2@4L VIA N/C AND TOLERATING WELL. WILL CONTINUE TO MONITOR.
--- NOTE | 2016-09-17 10:50 | NUR ---
NOTE DR ROA IS IN TO SEE THE PATIENT AND NEW ORDER TO DISCHARGE PATIENT TO SNF WAS NOTED AND CARRIED OUT. DR ROA SPOKE TO THE DAUGHTER AND SHE IS AWARE OF THE TRANSFER. CM IS WORKING ON PLACEMENT BUT NONE IS NOTED AT THIS TIME. CALL LIGHT IS WITHIN REACH AND DAUGHTER IS AT BEDSIDE. PATIENT WAS REPOSITIONED AND TOLERATED WELL. WILL CONTINUE TO MONITOR.
--- NOTE | 2016-09-17 12:24 | NUR ---
DISCHARGE PLANNING Received return call back from patient toya Terrazas [phone] who stated he discussed with patient and both are agreeable with discharge plan to [facility]. Faxed referral [phone]. Will follow up. Addendum: 09/17/16 at 1227 by Farideh MUNOZ DC order to SNF. Dr Hayes speaking with patient toya Giraldo regarding discharge plan to SNF. Addendum: 09/17/16 at 1323 by Farideh MUNOZ spoke with patient toya Giraldo who requested placement at [facility]. Received call from Charleen at [facility] patient denied, not appropriate for placement at this time. Addendum: 09/17/16 at 1629 by Farideh Escalona DP Received call from Enzo and Enzo regarding discharge plan. Wanted to know diagnosis of patient and was made aware needed to be provided by MD. Enzo stated [facility] with [facility] to see if decision can be overturned. Enzo stated if decision can not be overturned family requesting patient to be discharged home with home health. RAND Castaneda made aware. DCP will follow up.
[2016-09-17] MEDS: CITALOPRAM HYDROBROMIDE 20 MG TABLET PO SCH (12:25)
[2016-09-17] MEDS: PANTOPRAZOLE SODIUM 40 MG/VIAL (PROTONIX) IVP SCH ×2 (12:25→21:06)
[2016-09-17] MEDS: FUROSEMIDE 40 MG TABLET PO SCH (12:26)
[2016-09-17 12:35] VITALS: BP 122/77; PULSE 74; RESP 18; TEMP 98.7; O2SAT 91
--- NOTE | 2016-09-17 12:36 | NUR ---
NOTE PATIENT IS RESTING IN BED COMFORTABLY WITH NO COMPLAINTS OF PAIN, NO NOTED DISTRESS, DISCOMFORT OR SOB. PATIENT WAS GIVEN MEDICATIONS LATE BECAUSE SHE WAS NPO FOR PROCEDURES AND DR ROA PUT HER ON A MECHANICAL SOFT DIET. BED IS IN LOWEST POSITION AND CALL LIGHT IS WITHIN REACH. WILL CONTINUE TO MONITOR.
[2016-09-17] MEDS ORDERED: MIDAZOLAM HCL 5 MG/5 ML VIAL ONE ×2 (13:08→13:09)
[2016-09-17] MEDS ORDERED: fentaNYL CITRATE/PF 100 MCG/2 ML AMP ONE (13:09)
[2016-09-17] MEDS ORDERED: SIMETHICONE 40 MG/0.6 ML ML ONE (13:10)
--- NOTE | 2016-09-17 13:36 | NUR ---
DC PLANNING Per [facility], did not accept pt. Called & left msg for Son Enzo to inform & discuss 2nd choice. Waiting for call back.
--- NOTE | 2016-09-17 14:40 | NUR ---
NOTE PATIENT IS RESTING IN BED COMFORTABLY WITH NO COMPLAINTS OF PAIN, NO NOTED DISTRESS, DISCOMFORT OR SOB. BED IS IN LOWEST POSITION AND CALL LIGHT IS WITHIN REACH. WILL CONTINUE TO MONITOR.
--- NOTE | 2016-09-17 15:39 | NUR ---
PHYSICAL THERAPY CO-SIGN The Physical Therapy Progress Notes documented by Chief Substation Operator have been reviewed. I CONCUR W/LINING FOLDER NOTE; CONT PER TX PLAN Reviewed/Co-Signed by: Kristan Gomez PT Documentation Done by: KONSTANTIN FROST LINING FOLDER Addendum: 09/17/16 at 1540 by Kristan Gomez PT Amended: Links added.
[2016-09-17 16:27] VITALS: BP 80/46; PULSE 63; RESP 18; TEMP 97.5; O2SAT 100
--- NOTE | 2016-09-17 16:30 | NUR ---
NOTE PATIENT IS RESTING IN BED COMFORTABLY WITH NO COMPLAINTS OF PAIN, NO NOTED DISTRESS, DISCOMFORT OR SOB. PATIENT'S BP WAS LOW AND PATIENT WAS LAID FLAT AND BP CUFF WAS REPOSITIONED AND PATIENT WAS ALERT AND ORIENTED WITH NO NOTED COMPLICATIONS. WILL RECHECK THE BP. BED IS IN LOWEST POSITION AND CALL LIGHT IS WITHIN REACH. WILL CONTINUE TO MONITOR.
--- NOTE | 2016-09-17 18:23 | NUR ---
CLOSING NOTE PATIENT IS RESTING COMFORTABLY IN BED WITH NO COMPLAINTS OF PAIN, NO NOTED DISTRESS, DISCOMFORT OR SOB. PATIENT HAS BED IN LOWEST POSITION AND CALL LIGHT IS WITHIN REACH. BP IS BETTER THAN EARLIER AND WILL ENDORSE TO SECURITY SERVICES SPECIALIST TO MONITOR. WILL GIVE REPORT TO NIGHT NURSE.
--- NOTE | 2016-09-17 19:30 | NUR ---
INITIAL NOTES; -Pt is a/ox4, resting in bed. Vital signs 96.0, 99/57, 63, 20,100% 3L n/c oxy. Pt denies any pain,chest pain,or resp distress. Family is at bedside. IV site of rt wrist patent, no s/s any infiltration noted after flushed w/ NS. Abdomen soft & distended, bs present. Veto pedis present but weak upon palp. Veto lower extremities discolorization and redness and swollen, warm to touch-elevated w/ pillows. Wound of buttocks noted. rt side of leg bruise, rt knee wound and swollen noted. Lung sounds anterior veto upper clear, veto posterior lower lobes diminished. Discussed poc,all safety measures, pain mgmt with pt and family, verbalized understanding. Side rail x3, bed low position, bed alarmed. Air mattress in place. Instructed pt not to get out bed to use call light for assistance, pt verbalized understanding. Fall precaution in place. Call light /win reach. Continue to monitor pt.
[2016-09-17] MEDS: PREGABALIN 75 MG CAPSULE (LYRICA) PO SCH (21:07)
[2016-09-17] MEDS: MULTIVITAMINS TAB 1 TABLET PO SCH (21:07)
[2016-09-17] MEDS: SIMVASTATIN 40 MG TABLET PO SCH (21:07)
--- NOTE | 2016-09-17 22:16 | NUR ---
ROUNDS; -Pt is resting in bed. Pt is on 3L n/c oxy. Pt denies any pain,chest pain,or acute distress. No visitor is at bedside. Fall precaution in place. Call light /win reach. Continue to monitor pt.
--- NOTE | 2016-09-18 00:06 | NUR ---
ROUNDS; -Pt is resting in bed. Pt is on 3L n/c oxy. No s/s any pain,chest pain,or acute distress noted. No visitor is at bedside. Fall precaution in place. Call light /win reach. Continue to monitor pt.
[2016-09-18 00:11] VITALS: BP 103/55; PULSE 69; RESP 20; TEMP 97.6; O2SAT 93
[2016-09-18 04:15] VITALS: BP 103/56; PULSE 58; RESP 18; TEMP 96.8; O2SAT 95
[2016-09-18] MEDS: LEVOTHYROXINE SODIUM 0.15 MG TABLET PO SCH (06:29)
--- NOTE | 2016-09-18 06:58 | NUR ---
CLOSING NOTES; -Pt is resting in bed. Pt has 3L n/c oxy. Pt denies any pain,chest pain,or resp distress. IV site of rt wrist patent, no s/s any infiltration noted after flushed w/ NS. Side rail x3, bed low position, bed alarmed. Air mattress in place. Fall precaution in place. Call light /win reach. Will endorse oncoming nurse to continue care.
[2016-09-18 08:00] VITALS: BP 90/49; PULSE 61; RESP 18; TEMP 96.5; O2SAT 98
--- NOTE | 2016-09-18 08:00 | NUR ---
OPENING NOTE RECEIVED REPORT FROM NIGHT NURSE, PATIENT IS RESTING IN BED COMFORTABLY WITH NO COMPLAINTS OF PAIN, NO NOTED DISTRESS, DISCOMFORT OR SOB. PATIENT IS ALERT AND ORIENTED AND ABLE TO COMMUNICATE NEEDS TO STAFF. PATIENT IS AMBULATORY WITH ASSISTANCE AND IS EDUCATED NOT TO GET UP WITHOUT ASSISTANCE. BED ALARM IS ON AND BED IS IN LOWEST POSITION. CALL LIGHT IS WITHIN REACH AND WILL CONTINUE TO MONITOR.
[2016-09-18] MEDS: IPRATROPIUM BROM 0.5 MG/2.5 ML VIAL.NEB (ATROVENT) INH SCH ×2 (08:30→11:20)
[2016-09-18] MEDS: ALBUTEROL SULFATE 0.083% 2.5 MG/3 ML VIAL.NEB INH SCH ×2 (08:30→11:20)
[2016-09-18] MEDS: FUROSEMIDE 40 MG TABLET PO SCH (09:00)
[2016-09-18] MEDS: HYDROcodone/ACETAMIN 10-325 MG TAB PO SCH (09:00)
[2016-09-18] MEDS: CITALOPRAM HYDROBROMIDE 20 MG TABLET PO SCH (09:07)
[2016-09-18] MEDS: PANTOPRAZOLE SODIUM 40 MG/VIAL (PROTONIX) IVP SCH (09:07)
--- NOTE | 2016-09-18 10:00 | NUR ---
NOTE PATIENT IS RESTING COMFORTABLY IN BED WITH NO COMPLAINTS OF PAIN, NO NOTED DISTRESS, DISCOMFORT OR SOB. PATIENT'S BP WAS 90/43 AND SO LASIX WAS HELD WELL NORCO. ALL OTHER MEDICATIONS WERE GIVEN WITH NO PROBLEMS. BED ALARM IS ON AND BED IS IN LOWEST POSITION AND CALL LIGHT IS WITHIN REACH. WILL CONTINUE TO MONITOR. DR ROA IS HERE TO SEE THE PATIENT AND A DISCHARGE IS NOTED, SON WAS CALLED AND SPOKE WITH DR ROA. WILL WORK ON DISCHARGE PAPERWORK
[2016-09-18 10:14] LABS: BASOPHILS % (AUTO) 0.5 % (0.0-2.0); EOSINOPHILS # (AUTO) 0.2 K/uL (0.0-0.4); EOSINOPHILS % (AUTO) 4.3 % (0.0-4.0); HEMATOCRIT 24.5 % (36-48); HEMOGLOBIN 7.9 g/dL (12.0-16.0); LYMPHOCYTES # (AUTO) 0.5 K/uL (1.0-5.5); LYMPHOCYTES % (AUTO) 11.3 % (20.5-51.5); MEAN CORPUSCULAR HEMOGLOBIN 29 pg (27-31); MEAN CORPUSCULAR HGB CONC 32 % (32-36); MEAN CORPUSCULAR VOLUME 91 fL (79.0-98.0); MONOCYTES # (AUTO) 0.7 K/uL (0.0-1.0); MONOCYTES % (AUTO) 15.6 % (1.7-9.3); NEUTROPHILS % (AUTO) 68.3 % (40.0-70.0); PLATELET COUNT (AUTO) 227 K/uL (130-430); RED BLOOD CELL COUNT(AUTO) 2.71 MIL/uL (4.2-6.2); RED CELL DISTRIBUTION WIDTH 19.6 % (9.0-15.0); WHITE BLOOD COUNT (AUTO) 4.4 K/uL (4.8-10.8)
--- NOTE | 2016-09-18 10:45 | NUR ---
DISCHARGE PLANNING Received call from patient son Enzo who stated family will be taking patient home and has spoken with Dr Hayes regarding discharge plan. Faxed referral to [facility] [phone] who will resume home health. ALYSIA Landeros made aware family request for medical records and will have family sign release of medical records upon patient discharge.
--- NOTE | 2016-09-18 10:52 | NUR ---
NOTE SPOKE TO DR ROA AND NEW ORDER TO DISCHARGE AND CONTINUE [facility] WAS NOTED AND CARRIED OUT. DR ROA SAID TO PRINT RECORDS FOR PATIENT'S SON WHEN HE GETS HERE SO CONSENT WAS PRINTED AND WILL ASK THE PATIENT FOR CONSENT. WILL WORK ON DISCHARGE PAPERWORK. PATIENT IS AWARE THAT SHE WILL BE GOING HOME WITH HOME HEALTH. DR ROA ORDERED LABS AND PATIENT IS STILL GOOD TO BE DISCHARGED.
[2016-09-18 11:20] VITALS: BP 103/56; PULSE 61
--- NOTE | 2016-09-18 11:45 | NUR ---
PHYSICAL THERAPY CO-SIGN The Physical Therapy Progress Notes documented by Re Etcher have been reviewed. Reviewed/Co-Signed by: Bridget Altamirano PT Documentation Done by: Milo Marshall PTA I concur with the documentation of this ODD JOB WORKER. Plan: patient will be discharged later. Addendum: 09/18/16 at 1546 by Bridget Altamirano PT Amended: Links added.
--- NOTE | 2016-09-18 11:45 | NUR ---
WOUND RE-EVALUATION: Patient received in a Drasco Bed with an IsoFlex ANIDE mattress with low air-loss therapy initiated, awake, alert, and oriented. Patient is able to turn in bed with some assist. Ismael Score is a 14. Intrinsic factors that delay wound healing: COPD, Chronic Respiratory Failure. Extrinsic factors that delay wound healing: Decreased mobility. Microbiology: Blood Culture negative. Bilateral Lower Extremities have erythema, and Hemosiderin staining. Wound Assessment: 1) Left Lower Extremity: 2) Right Lower Extremity, and Right Knee: Multiple chronic wounds with dry scabs, present on admission. Wound bed is 100% black eschar. No odor, no drainage. roya-wound intact. 3) Left Foot, Fifth Toe, Lateral Aspect: Chronic wound with dry scab, present on admission. Wound bed is 100% black eschar. No odor, no drainage. roya-wound intact. 4) Right Thigh and Calf: Large areas of bruising with purple discoloration, present on admission. Recommend continue: No dressings needed. Continue to monitor sites for worsening condition. 5) Left Buttock: Two chronic small wounds, from IAD. A) Superior Wound: Wound bed is 100% pink tissue. No odor, no drainage. B) Inferior Wound: Wound bed is 100% pink tissue. No odor, no drainage. 6) Buttocks: Dark dull red colored tissue from IAD. No odor, no drainage. Non-blanchable in some areas. Recommend continue: Cleanse involved areas with mild soap and water. Pat dry. Apply moisture barrier cream to involved areas. Cover with Sacral foam dressing. Perform wound care daily, and as needed or dressing soiling or dislodgment. Also recommend continue: Reposition patient side to side only every 2 hours with pillow support, and off-load pressure areas with pillows for pressure re-distribution. Offload, elevate and float bilateral heels with pillows. Perform skin care and monitor skin integrity Q shift. Use moisture barrier cream on buttocks and other moisture susceptible areas QID and as needed for soiling. Maintain patient on a low air-loss mattress.
[2016-09-18 12:15] VITALS: BP 96/56; PULSE 57; RESP 17; TEMP 97.9; O2SAT 98
--- NOTE | 2016-09-18 12:45 | NUR ---
WOUND CARE WOUND CARE WAS PERFORMED WITH SCOTT HATFIELD, PICTURES WERE TAKEN BECAUSE PATIENT WILL BE GOING HOME TODAY. Z GUARD WAS APPLIED TO THE COCCYX AND FOAM DRESSING WAS APPLIED. FOAM DRESSING WAS APPLIED TO THE RIGHT TOE AND LEFT TOE. PATIENT TOLERATED IT WELL. NO COMPLAINTS OF PAIN, NO NOTED DISTRESS, DISCOMFORT OR SOB. BED IS IN LOWEST POSITION AND BED ALARM IS ON. CALL LIGHT IS WITHIN REACH AND WILL CONTINUE TO MONITOR
[2016-09-18 12:49] VITALS: BP 103/56; PULSE 61; RESP 18; TEMP 96.7; O2SAT 97
--- NOTE | 2016-09-18 14:30 | NUR ---
DISCHARGE PATIENT WAS GIVEN TRANSITION OF CARE INSTRUCTIONS AND VERBALIZED UNDERSTANDING, IV WAS TAKEN OUT, AND ARMBANDS WERE REMOVED. THE PATIENT ASKED FOR A BRIEF AND WAS GIVEN TO THE FAMILY. THE DAUGHTER IS HELPING THE PATIENT GET DRESSED. THE PATIENT WAS EDUCATED TO PLEASE CALL BEFORE LEAVING AND WE WILL ESCORT THE PATIENT OUT. THE PATIENT IS TAKING ALL THE BELONGINGS HOME. THE PATIENT WAS EDUCATED TO FOLLOW UP WITH THE PCP WITHIN A WEEK AND TO HAVE A COLONOSCOPY AN OUTPATIENT, PATIENT AND FAMILY VERBALIZED UNDERSTANDING.
--- NOTE | 2016-09-18 14:55 | NUR ---
DISCHARGE PATIENT WAS WHEELED OUT TO CAR IN STABLE CONDITION WITH NO COMPLAINTS OF PAIN, NO NOTED DISTRESS, DISCOMFORT OR SOB. ALL BELONGINGS WERE TAKEN WITH PATIENT
--- NOTE | 2016-09-28 15:22 | NUR ---
Discharge Follow Up Phone Calls: Product Safety Consultant called and left a voice mail for pt ([phone]) on 09/24/16. SOLDERER ASSEMBLY REPAIR called and left a voice mail for pt today. SOLDERER ASSEMBLY REPAIR called and spoke with pt's son, Enzo ([phone]). Pt's son states that pt was recently discharged from [facility] and is now doing well; there are no questions regarding discharge or medication instructions; pt has already attended her PCP follow up appointment; pt will be starting home health services with a new [facility] this week. Pt's son did not express any other needs or concerns at this time. No further follow up phone calls required at this time.
== END 2016-09-18 14:55 | disposition home health service (06) | DRG 377 ==
LOC: SED 10:52 → STU 12:48 → SMU 09-13 18:40
PROVIDERS: ADMIT Internal Medicine Hospice and Palliative Medicine; ATTEND Internal Medicine Hospice and Palliative Medicine
PROC: 30233L1 Transfusion of Nonautologous Fresh Plasma into Peripheral Vein, Percutaneous Approach (ICD-10-PCS; principal; 2016-09-12)
PROC: 30233N1 Transfusion of Nonautologous Red Blood Cells into Peripheral Vein, Percutaneous Approach (ICD-10-PCS; 2016-09-12)
PROC: 30233K1 Transfusion of Nonautologous Frozen Plasma into Peripheral Vein, Percutaneous Approach (ICD-10-PCS; 2016-09-12)
PROC: BD14YZZ Fluoroscopy of Colon using Other Contrast (ICD-10-PCS; 2016-09-12)
DX: K92.2 Gastrointestinal hemorrhage, unspecified (principal); E43 Unspecified severe protein-calorie malnutrition; D68.9 Coagulation defect, unspecified; J96.10 Chronic respiratory failure, unspecified whether with hypoxia or hypercapnia; D62 Acute posthemorrhagic anemia; K50.90 Crohn's disease, unspecified, without complications; J44.1 Chronic obstructive pulmonary disease with (acute) exacerbation; E78.5 Hyperlipidemia, unspecified; E03.9 Hypothyroidism, unspecified; I25.10 Atherosclerotic heart disease of native coronary artery without angina pectoris; T45.515A Adverse effect of anticoagulants, initial encounter; I48.2 Chronic atrial fibrillation; I50.9 Heart failure, unspecified; K21.9 Gastro-esophageal reflux disease without esophagitis; F03.90 Unspecified dementia, unspecified severity, without behavioral disturbance, psychotic disturbance, mood disturbance, and anxiety; E78.00 Pure hypercholesterolemia, unspecified; F41.9 Anxiety disorder, unspecified; S80.01XA Contusion of right knee, initial encounter; Z79.01 Long term (current) use of anticoagulants; Z95.1 Presence of aortocoronary bypass graft; Z99.81 Dependence on supplemental oxygen; Z87.891 Personal history of nicotine dependence; Z79.899 Other long term (current) drug therapy; Z68.26 Body mass index [BMI] 26.0-26.9, adult
CPT/HCPCS: 36415; 71010; 73560-TC; 74246; 74270-TC; 80053; 82272; 82607; 82746; 83010; 83051; 83540-TC; 83550-TC; 83605; 83615-TC; 84443-TC; 85014-TC; 85018-TC; 85025; 85044-TC; 85610-TC; 85730-TC; 86886; 86900; 86901; 86920; 87040-TC; 94640; 94760; 96365; 97110-GP; 97116-GP; 97530-GP; 99291; C9113; J0696; J2250; J3010; J7030; J7042; J7050; J7060; P9021; P9059